=== PATIENT | male | born 1995 | race Caucasian/White ===

== ENCOUNTER 2017-02-26 14:58 | Emergency (ER) | payer OTHER ==
[2017-02-26] MEDS: guaiFENesin SYRUP 200 MG/10 ML UDC PO (18:45)
[2017-02-26] MEDS: MAGIC MOUTHWASH SUSPENSION BTL SSP (18:45)
== END 2017-02-26 19:23 | disposition home or self-care (01) ==
LOC: M ED 14:58
DX: J02.9 Acute pharyngitis, unspecified (principal)
CPT/HCPCS: 99283